=== PATIENT | male | born 1975 | race Hispanic/Latino ===

== ENCOUNTER 2020-06-23 16:52 | Emergency (ER) | payer BC ==
[~2020-06-23] VITALS: Ht 180.3 cm; Wt 88.5 kg
[2020-06-23 19:42] LABS: ALANINE AMINOTRANSFERASE 40 IU/L (0-55); ALBUMIN/GLOBULIN RATIO 1.3 (0.8-2.0); ALKALINE PHOSPHATASE 138 IU/L (40-150); ANION GAP 13.2 mmol/L (8-16); BLOOD UREA NITROGEN 16 mg/dL (7-26); BUN/CREATININE RATIO 17 (6-25); CALCIUM 9.1 mg/dL (8.4-10.2); CARBON DIOXIDE 27 mmol/L (22-29); CHLORIDE 104 mmol/L (98-107); CREATININE, SERUM 0.92 mg/dL (0.72-1.25); EST GLOMERULAR FILTRATION RATE > 60 ML/MIN (60-); GLUCOSE 103 mg/dL (74-118); POTASSIUM 4.2 mmol/L (3.5-5.1); SODIUM 140 mmol/L (136-145)
[2020-06-23 20:03] LABS: CREATINE KINASE 32 IU/L (30-200)
[2020-06-23 20:39] VITALS: BP 115/73
== END 2020-06-23 20:45 | disposition home or self-care (01) ==
LOC: ER 17:20
DX: M79.605 Pain in left leg (principal); M79.604 Pain in right leg; M79.10 Myalgia, unspecified site
CPT/HCPCS: 36415; 80053; 82550; 82553; 84484; 93970; 99283

== ENCOUNTER 2021-02-14 19:47 | Emergency (ER) | payer BC, OTHER ==
[~2021-02-14] VITALS: Ht 180.3 cm; Wt 93.0 kg
== END 2021-02-14 21:58 | disposition home or self-care (01) ==
LOC: ER 20:19
DX: R07.89 Other chest pain (principal); S20.213A Contusion of bilateral front wall of thorax, initial encounter; W01.0XXA Fall on same level from slipping, tripping and stumbling without subsequent striking against object, initial encounter; Y92.008 Other place in unspecified non-institutional (private) residence as the place of occurrence of the external cause; I10 Essential (primary) hypertension; E78.5 Hyperlipidemia, unspecified
CPT/HCPCS: 71111; 99283

== ENCOUNTER → 2021-02-19 | Outpatient (CLI) | payer BC | LOC: US 12:21 | PROVIDERS: ATTEND Family Medicine | DX: R74.8 Abnormal levels of other serum enzymes (principal) | CPT/HCPCS: 76705 ==